=== PATIENT | male | born 1980 | race Native Hawaiian/Other Pacific Islander ===

== ENCOUNTER 2017-11-28 15:22 | Emergency (ER) | payer OTHER ==
[~2017-11-28] VITALS: Ht 167.6 cm; Wt 76.7 kg
[2017-11-28 16:08] LABS: PLATELET COUNT 461 K/uL (142-355)
[2017-11-28 16:35] LABS: POTASSIUM 3.6 mmol/L (3.6-5.2)
[2017-11-28 17:00] VITALS: TEMP 98.5
[2017-11-28 17:30] VITALS: BP 133/72
== END 2017-11-28 17:45 | disposition home or self-care (01) ==
LOC: ED 15:22
PROVIDERS: Family Medicine
DX: I10 Essential (primary) hypertension (principal); H53.8 Other visual disturbances; R51 Headache
CPT/HCPCS: 36415; 80053; 84484; 85027; 93005; 99283